=== PATIENT | female | born 1980 | race Two or more races ===

== ENCOUNTER 2024-04-20 19:17 | Emergency (ER) | payer OTHER ==
[~2024-04-20] VITALS: Ht 154.9 cm; Wt 95.3 kg
[2024-04-20] MEDS ORDERED: ACETAMINOPHEN ES 500 MG TABLET ONE (20:00)
[2024-04-20] MEDS: IBUPROFEN 600 MG TABLET PO ONE (20:00)
[2024-04-20] MEDS ORDERED: IBUPROFEN 600 MG TABLET ONE (20:01)
[2024-04-20] MEDS: ACETAMINOPHEN ES 500 MG TABLET PO ONE (20:05)
[2024-04-20] MEDS ORDERED: IBUP-1953 PO (21:10)
[2024-04-20] MEDS ORDERED: KETOROLAC TROMETHAMINE INJ 30 MG/ML VIAL ONE (21:17)
[2024-04-20] MEDS: KETOROLAC TROMETHAMINE INJ 60 MG/2 ML VIAL IM ONE (21:19)
[2024-04-20 21:34] VITALS: BP 120/71; TEMP 98.4; O2SAT 97
== END 2024-04-20 21:21 ==
LOC: ER 19:19
DX: S80.12XA Contusion of left lower leg, initial encounter (principal); S20.211A Contusion of right front wall of thorax, initial encounter; E11.9 Type 2 diabetes mellitus without complications; I10 Essential (primary) hypertension; R06.00 Dyspnea, unspecified; R07.9 Chest pain, unspecified; R10.2 Pelvic and perineal pain; Z87.19 Personal history of other diseases of the digestive system; Z91.018 Allergy to other foods; V43.52XA Car driver injured in collision with other type car in traffic accident, initial encounter; Y93.89 Activity, other specified; Y92.488 Other paved roadways as the place of occurrence of the external cause; Y99.8 Other external cause status
CPT/HCPCS: 99284; 71045; 96372; 72170; J1885